=== PATIENT | female | born 1930 | race Caucasian/White ===

== ENCOUNTER 2016-06-27 13:05 | Emergency (ER) | payer MEDICARE ==
[~2016-06-27] VITALS: Ht 172.7 cm; Wt 56.5 kg
--- NOTE | 2016-06-27 13:15 | PD ---
HPI Chief Complaint: constipation Time Seen by Provider: 13:10 Travel History International Travel<30 days: No Contact w/Intl Traveler<30days: No Traveled to known affect area: No History of Present Illness HPI Patient presents via [facility] for constipation. Reports no bowel movement for 11-12 days. States she attempted oral Dulcolax and magnesium citrate without relief. She does take naproxen for chronic back pain. Reports one episode of vomiting this morning. States she vomited some more juice. Denies bile or feces. Denies any urinary symptoms. History of hysterectomy and cholecystectomy. Daughter arrived and states the patient is at baseline and has a long history of constipation but since she is visiting she has been off her normal regime. [facility] Social History Tobacco Use: No Allergies-Medications (Allergen,Severity, Reaction): Coded Allergies: Tetracycline (Verified Allergy, Unknown, 06/27/16) Reported Meds & Prescriptions Reported Meds & Active Scripts Active Golytely 236 gm (Polyethylene Glycol/Electrolytes) 4,000 Ml Soln 4,000 Ml PO ONCE Reported Levothyroxine (Levothyroxine Sodium) Unknown Strength Tab Unknown Dose PO DAILY Naprosyn (Naproxen) Unknown Strength Tab Unknown Dose PO PRN Review of Systems General / Constitutional: No: Fever Eyes: No: Visual changes HENT: No: Headaches Cardiovascular: No: Chest Pain or Discomfort Respiratory: No: Shortness of Breath Gastrointestinal: Positive: Constipation, No: Abdominal Pain Genitourinary: No: Dysuria Musculoskeletal: No: Pain Skin: No Rash Neurologic: No: Weakness Psychiatric: No: Depression Endocrine: No: Polydipsia Hematologic/Lymphatic: No: Easy Bruising Physical Exam Narrative GENERAL: Well-nourished, well-developed patient. SKIN: Focused skin assessment warm/dry. HEAD: Normocephalic. EYES: No scleral icterus. No injection or drainage. NECK: Supple, trachea midline. No JVD or lymphadenopathy. CARDIOVASCULAR: Regular rate and rhythm without murmurs, gallops, or rubs. RESPIRATORY: Breath sounds equal bilaterally. No accessory muscle use. GASTROINTESTINAL: Abdomen soft, diffusely tender and distended, hypoactive bowel sounds. MUSCULOSKELETAL: No cyanosis, or edema. BACK: Nontender without obvious deformity. No CVA tenderness. Data Data Last Documented VS Vital Signs Date Time Temp Pulse Resp B/P Pulse Ox O2 Delivery O2 Flow Rate FiO2 06/27/16 14:22 76 18 131/62 97 Room Air 06/27/16 13:19 97.4 Orders Abdomen, Flat & Upright (06/27/16 ) MDM Medical Decision Making Medical Screen Exam Complete: Yes Emergency Medical Condition: Yes Differential Diagnosis Constipation, bowel obstruction, ischemic bowel Narrative Course Assessment and plan discussed with patient at bedside. Abdominal films revealed a mild gaseous distention of the ascending and transverse colon exam is otherwise unremarkable Diagnosis Primary Impression: Constipation Qualified Code: K59.00 - Constipation, unspecified constipation type Patient Instructions: General Instructions Additional Instructions: Encouraged resumption of her regular medication. Encouraged Colace 100 mg by mouth twice a day. Magnesium citrate and Dulcolax per rectum as needed. Consider soapsuds enema. Discussed manual stimulation and manual disimpaction. Med/Other Pt SpecificInfo: Prescription(s) given Scripts Peg-Electrolytes (Golytely 236 gm)4,000 Ml Soln4,000 Ml PO ONCE #1 CONTAINER Ref 0 Prov:Darryn Hair MD 06/27/16 Disposition: 01 DISCHARGE HOME Condition: Good Darryn Hair MD June 27, 2016 13:15
[2016-06-27 13:19] VITALS: BP 120/65; PULSE 74; RESP 18; TEMP 97.4; O2SAT 97
[2016-06-27] MEDS ORDERED: NAPR250T57 PO (13:38)
[2016-06-27] MEDS ORDERED: LEVO25TA4 PO (13:38)
[2016-06-27] MEDS ORDERED: COLY4000S PO (13:59)
--- NOTE | 2016-06-27 14:21 | RADHPO ---
EXAM DATE/TIME: 06/27/2016 13:26 [facility] COMPARISON: No previous studies available for comparison. INDICATIONS : Severe abdomen pain MEDICAL HISTORY : None. SURGICAL HISTORY : Appendectomy. Hysterectomy. ENCOUNTER: Initial ACUITY: 2 days PAIN SCORE: 10/10 LOCATION: Bilateral abdomen FINDINGS: There is mild gaseous distention of the ascending and mid transverse colon. The bowel gas pattern is otherwise unremarkable. There is no free air. Visualized bony structures demonstrate a severe rotatory scoliosis but are otherwise intact. There are degenerative changes in the right hip. There is mean arthroplasty placement on the left. CONCLUSION: 1. Mild gaseous distention of the asymmetry and transverse colon. Exam is otherwise unremarkable. Kristian Milner MD on June 27, 2016 at 14:18 Board Certified Radiologist. This report was verified electronically.
[2016-06-27 14:22] VITALS: BP 131/62; PULSE 76; RESP 18; O2SAT 97
== END 2016-06-27 14:38 | disposition home or self-care (01) ==
LOC: PHED 13:05
DX: K59.00 Constipation, unspecified (principal)
CPT/HCPCS: 74020; 99283